=== PATIENT | male | born 1980 | race Caucasian/White ===

== ENCOUNTER 2017-04-21 15:45 | Inpatient (IN) | payer BC, OTHER ==
[~2017-04-21] VITALS: Ht 170.2 cm; Wt 78.9 kg
[2017-04-21] MEDS ORDERED: BANANA BAG 1 EA, MVI 10 ML, THIAMINE HCL 100 MG, FOLIC ACID 1 MG, MAGNESIUM SULFATE 1 G... IV STA ×5 (16:57)
[2017-04-21 17:19] LABS: BASOPHILS % (AUTO) 0.4 % (0.0-2.0); EOSINOPHILS # (AUTO) 0.1 K/uL (0.0-0.4); EOSINOPHILS % (AUTO) 2.7 % (0.0-4.0); HEMATOCRIT 37.5 % (36-54); HEMOGLOBIN 12.6 g/dL (14.0-18.0); LYMPHOCYTES # (AUTO) 1.8 K/uL (1.0-5.5); LYMPHOCYTES % (AUTO) 42.7 % (20.5-51.5); MEAN CORPUSCULAR HEMOGLOBIN 32 pg (27-31); MEAN CORPUSCULAR HGB CONC 34 % (32-36); MEAN CORPUSCULAR VOLUME 95 fL (79.0-98.0); MONOCYTES # (AUTO) 0.3 K/uL (0.0-1.0); NEUTROPHILS # (AUTO) 2.1 K/uL (1.8-7.7); NEUTROPHILS % (AUTO) 46.2 % (40.0-70.0); PLATELET COUNT (AUTO) 178 K/uL (130-430); RED BLOOD CELL COUNT(AUTO) 3.97 MIL/uL (4.2-6.2); RED CELL DISTRIBUTION WIDTH 13.9 % (9.0-15.0); WHITE BLOOD COUNT (AUTO) 4.3 K/uL (4.8-10.8)
[2017-04-21 17:27] LABS: BARBITURATE, URINE NEGATIVE (NEG <=200)
[2017-04-21 17:28] LABS: BENZODIAZEPINE, URINE POSITIVE (NEG <=150); CANNABINOID, URINE NEGATIVE (NEG <=50); COCAINE, URINE NEGATIVE (NEG <=150); METHAMPHETAMINES SCREEN,URINE NEGATIVE (NEG <=500); OPIATE, URINE POSITIVE (NEG <=100); PHENCYCLIDINE SCREEN,URINE NEGATIVE (NEG <=25); UR TRICYCLIC ANTIDEPRESSANTS NEGATIVE (NEG <=300); URINE AMPHETAMINE NEGATIVE (NEG <=500); URINE METHADONE NEGATIVE (NEG <=200); URINE OXYCODONE SCREEN NEGATIVE (NEG <=100); URINE PROPOXYPHENE SCREEN NEGATIVE (NEG <=300)
[2017-04-21 17:35] LABS: ALBUMIN 3.6 g/dL (3.4-4.8); CALCIUM 9.2 mg/dL (8.4-11.0); CREATININE 0.77 mg/dL (0.55-1.30); TOTAL BILIRUBIN 0.4 mg/dL (0.0-1.0)
[2017-04-21 17:42] LABS: POTASSIUM 2.6 mmol/L (3.5-5.1)
[2017-04-21] MEDS ORDERED: POTASSIUM CHLORIDE 20 MEQ in NS 250 ML IV ONE (17:45)
[2017-04-21] MEDS ORDERED: CAT.1 PO (18:02)
[2017-04-21 18:40] VITALS: BP_SYST 131
[2017-04-21 19:00] VITALS: BP_SYST 133
[2017-04-21] MEDS ORDERED: ACETAMINOPHEN 325 MG TABLET PO PRN (19:30)
[2017-04-21] MEDS ORDERED: ZOLPIDEM TARTRATE 5 MG TABLET PO PRN (19:30)
[2017-04-21] MEDS ORDERED: POTASSIUM CHLORIDE 20 MEQ TAB.PRT.SR PO PRN (19:30)
[2017-04-21] MEDS ORDERED: DOCUSATE SODIUM 100 MG CAPSULE PO PRN (19:30)
[2017-04-21] MEDS: NACL 0.9% 1,000 ML IV SCH ×2 (19:30→23:58)
[2017-04-21] MEDS ORDERED: MAGNESIUM SULFATE 50 ML IV PRN (19:30)
[2017-04-21] MEDS ORDERED: MORPHINE 2 MG/ML INJ. SYRINGE IVP PRN ×2 (19:30)
[2017-04-21] MEDS ORDERED: ONDANSETRON HCL 4 MG/2 ML VIAL IVP PRN (19:30)
[2017-04-21] MEDS ORDERED: KCL 20 mEq in 100 mL (PREMIX) 100 ML IV ONE (19:59)
[2017-04-21 20:00] VITALS: BP_SYST 133
[2017-04-21 23:42] VITALS: BP_SYST 113
[2017-04-21] MEDS: LORazepam 2 MG/ML VIAL IVP PRN (23:52)
[2017-04-22 03:52] VITALS: BP_SYST 140
[2017-04-22 07:11] LABS: BASOPHILS % (AUTO) 0.3 % (0.0-2.0); EOSINOPHILS # (AUTO) 0.1 K/uL (0.0-0.4); EOSINOPHILS % (AUTO) 3.6 % (0.0-4.0); HEMATOCRIT 42.6 % (36-54); HEMOGLOBIN 14.3 g/dL (14.0-18.0); LYMPHOCYTES # (AUTO) 1.5 K/uL (1.0-5.5); LYMPHOCYTES % (AUTO) 40.9 % (20.5-51.5); MEAN CORPUSCULAR HEMOGLOBIN 32 pg (27-31); MEAN CORPUSCULAR HGB CONC 34 % (32-36); MEAN CORPUSCULAR VOLUME 94 fL (79.0-98.0); MONOCYTES # (AUTO) 0.4 K/uL (0.0-1.0); MONOCYTES % (AUTO) 9.9 % (1.7-9.3); NEUTROPHILS # (AUTO) 1.6 K/uL (1.8-7.7); PLATELET COUNT (AUTO) 186 K/uL (130-430); RED BLOOD CELL COUNT(AUTO) 4.54 MIL/uL (4.2-6.2); RED CELL DISTRIBUTION WIDTH 13.8 % (9.0-15.0); WHITE BLOOD COUNT (AUTO) 3.6 K/uL (4.8-10.8)
[2017-04-22 07:44] LABS: CALCIUM 9.3 mg/dL (8.4-11.0); CREATININE 0.83 mg/dL (0.55-1.30)
[2017-04-22 08:00] VITALS: BP_SYST 135
[2017-04-22] MEDS: LORazepam 2 MG/ML VIAL IVP PRN (10:12)
[2017-04-22] MEDS ORDERED: LIB25 PO (10:16)
[2017-04-22 10:18] VITALS: BP_SYST 135
[2017-04-22 11:47] LABS: NEUTROPHILS % (AUTO) 45.3 % (40.0-70.0)
== END 2017-04-22 10:51 | disposition home or self-care (01) | DRG 897 ==
LOC: SED 15:45 → STU 18:12
PROVIDERS: ADMIT General Practice; ATTEND General Practice
DX: F10.239 Alcohol dependence with withdrawal, unspecified (principal); F11.10 Opioid abuse, uncomplicated; E87.6 Hypokalemia; F41.9 Anxiety disorder, unspecified
CPT/HCPCS: 36415; 80048; 80053; 80307; 83735-TC; 85025; 93005; 99285; G0480; G0481; G0482; J2060; J2270; J3411; J3475; J3480; J3490; J7030; J7050

== ENCOUNTER 2018-01-28 13:22 | Emergency (ER) | payer MEDICAID, OTHER ==
[~2018-01-28] VITALS: Ht 175.3 cm; Wt 83.9 kg
[~2018-01-28 13:22] MED LIST: CAT.1 PO; LIB25 PO
[2018-01-28 13:27] VITALS: BP_SYST 134
--- NOTE | 2018-01-28 13:46 | NUR ---
Dr. Winters at bedside to assess pt.
[2018-01-28] MEDS ORDERED: NACL 0.9% 1,000 ML IV ONE (13:49)
--- NOTE | 2018-01-28 13:50 | NUR ---
Pt presents to ER c/o alcohol withdrawal symptoms. Pt reports last alcoholic beverage he had was "late last night". Pt expresses desire to stop drinking. Pt c/o body aches, anxiety, tremors. Pt reports current pain level 7/10 on pain scale, denies suicidal ideation, denies chest pain or sob. Pt in no acute respiratory distress, speaking full sentences, respirations even and unlabored, AOX4.
[2018-01-28] MEDS ORDERED: ONDANSETRON HCL 4 MG/2 ML VIAL IVP ONE ×2 (14:00→15:15)
[2018-01-28] MEDS ORDERED: KETOROLAC TROMETHAMINE 30 MG VIAL IVP ONE (14:00)
[2018-01-28] MEDS ORDERED: LORazepam 2 MG/ML VIAL IVP ONE (14:00)
--- NOTE | 2018-01-28 14:18 | NUR ---
# 22 gauge angiocath placed to RAC. Use of asceptic technique. Opsite placed over site. Blood return noted. Blood for lab drawn from site. Flushed with 10 cc of normal saline. No evidence of infiltration noted. Patient tolerated well.
[2018-01-28] MEDS ORDERED: LORazepam 2 MG/ML VIAL (FOR ER USE) ONE (14:21)
--- NOTE | 2018-01-28 14:31 | NUR ---
Pt medicated as ordered by Dr. Winters, pt tolerated well; will continue to monitor.
[2018-01-28 14:53] LABS: BASOPHILS # (AUTO) 0.1 K/uL (0.0-0.2); BASOPHILS % (AUTO) 1.9 % (0.0-2.0); CALCIUM 8.1 mg/dL (8.4-11.0); CREATININE 0.67 mg/dL (0.55-1.30); HEMATOCRIT 42.7 % (36-54); HEMOGLOBIN 14.8 g/dL (14.0-18.0); LYMPHOCYTES # (AUTO) 1.5 K/uL (1.0-5.5); LYMPHOCYTES % (AUTO) 43.9 % (20.5-51.5); MEAN CORPUSCULAR HEMOGLOBIN 34 pg (27-31); MEAN CORPUSCULAR HGB CONC 35 % (32-36); MEAN CORPUSCULAR VOLUME 99 fL (79.0-98.0); MONOCYTES # (AUTO) 0.2 K/uL (0.0-1.0); MONOCYTES % (AUTO) 7.1 % (1.7-9.3); NEUTROPHILS # (AUTO) 1.7 K/uL (1.8-7.7); NEUTROPHILS % (AUTO) 46.1 % (40.0-70.0); PLATELET COUNT (AUTO) 154 K/uL (130-430); POTASSIUM 3.6 mmol/L (3.5-5.1); RED CELL DISTRIBUTION WIDTH 12.3 % (9.0-15.0)
[2018-01-28 14:58] LABS: TOTAL BILIRUBIN 0.3 mg/dL (0.0-1.0)
[2018-01-28] MEDS ORDERED: MORPHINE 4 MG/ML INJ. SYRINGE IVP ONE (15:15)
[2018-01-28 15:24] LABS: WHITE BLOOD COUNT (AUTO) 3.5 K/uL (4.8-10.8)
--- NOTE | 2018-01-28 16:10 | NUR ---
Dr. Winters at bedside speaking to pt discussing lab and diagnostic results.
[2018-01-28 16:52] VITALS: BP_SYST 141
--- NOTE | 2018-01-28 16:52 | NUR ---
Patient given written and verbal discharge instructions and verbalizes understanding. ER MD discussed with patient the results and treatment provided. Patient in stable condition. ID arm band removed. IV catheter removed intact and dressing applied, no active bleeding. Rx of Ativan given. Patient educated on pain management and to follow up with PMD. Pain Scale 3/10. Opportunity for questions provided and answered. Medication side effect fact sheet provided.
== END 2018-01-28 16:52 | disposition home or self-care (01) ==
LOC: SED 13:22
DX: F10.239 Alcohol dependence with withdrawal, unspecified (principal); F32.9 Major depressive disorder, single episode, unspecified; R25.1 Tremor, unspecified
CPT/HCPCS: 36415; 80053; 85025; 96374; 96375; 96376; 99284; J1885; J2060; J2270; J2405; J7030

== ENCOUNTER 2018-02-03 17:42 | Emergency (ER) | payer MEDICAID ==
[~2018-02-03] VITALS: Ht 175.3 cm; Wt 83.9 kg
[2018-02-03 18:01] VITALS: BP_SYST 148
[2018-02-03] MEDS ORDERED: NACL 0.9% 1,000 ML IV ONE ×2 (18:30→20:00)
[2018-02-03] MEDS ORDERED: DIPHENHYDRAMINE INJ 50 MG/ML VIAL IVP ONE (18:30)
[2018-02-03] MEDS ORDERED: ONDANSETRON HCL 4 MG/2 ML VIAL IVP ONE (18:30)
[2018-02-03] MEDS ORDERED: KETOROLAC TROMETHAMINE 30 MG VIAL IVP ONE (18:30)
[2018-02-03 18:48] LABS: MEAN CORPUSCULAR VOLUME 99 fL (79.0-98.0); PLATELET COUNT (AUTO) 188 K/uL (130-430); WHITE BLOOD COUNT (AUTO) 4.7 K/uL (4.8-10.8)
[2018-02-03 19:00] VITALS: BP_SYST 132
[2018-02-03 19:17] LABS: CALCIUM 8.1 mg/dL (8.4-11.0); CREATININE 0.94 mg/dL (0.55-1.30); POTASSIUM 3.9 mmol/L (3.5-5.1)
[2018-02-03 19:19] LABS: HEMATOCRIT 47.1 % (36-54); HEMOGLOBIN 16.3 g/dL (14.0-18.0); RED BLOOD CELL COUNT(AUTO) 4.76 MIL/uL (4.2-6.2)
[2018-02-03 19:20] LABS: MEAN CORPUSCULAR HEMOGLOBIN 34 pg (27-31); MEAN CORPUSCULAR HGB CONC 35 % (32-36); RED CELL DISTRIBUTION WIDTH 12.4 % (9.0-15.0)
[2018-02-03 19:21] LABS: TOTAL BILIRUBIN 0.2 mg/dL (0.0-1.0)
[2018-02-03 20:30] LABS: BAND % (MANUAL) 2 % (0-6); BASOPHILS % (MANUAL) 0 % (0-2); EOSINOPHILS % (MANUAL) 2 % (0-7); LYMPHOCYTES % (MANUAL) 51 % (20-46); MONOCYTES % (MANUAL) 3 % (0-11)
== END 2018-02-03 20:06 | disposition left against medical advice (07) ==
LOC: SED 17:42
DX: F10.129 Alcohol abuse with intoxication, unspecified (principal); F11.10 Opioid abuse, uncomplicated; R53.1 Weakness; F41.9 Anxiety disorder, unspecified
CPT/HCPCS: 36415; 80053; 83690; 85007; 85027; 96374; 96375; 99284; G0482; J1200; J1885; J2405; J7030